=== PATIENT | female | born 1985 | race African-American/Black ===

== ENCOUNTER 2023-06-14 18:11 | Emergency (ER) | payer OTHER, SELFPAY ==
--- NOTE | 2023-06-14 19:20 | PC.NURSE ---
called patient back to triage. she does not want to be seen here. she is going to call 911 so they can take her a different hospital.
== END 2023-06-14 19:20 | disposition left against medical advice (07) ==
DX: Z53.21 Procedure and treatment not carried out due to patient leaving prior to being seen by health care provider (principal)
CPT/HCPCS: 99199

== ENCOUNTER 2023-10-13 13:58 | Emergency (ER) | payer OTHER, SELFPAY ==
[2023-10-13 14:13] VITALS: BP 92/58; PULSE 87; RESP 18; TEMP 37; O2SAT 100
[2023-10-13 14:36] LABS: Basophils Percent Auto 0.4 % (0.2-1.2); Eosinophils Absolute Auto 0.2 K/mm3 (0-0.3); Eosinophils Percent Auto 2.1 % (0-4.4); Hematocrit 41.6 % (37.0-47.0); Hemoglobin 13.2 g/dL (12.0-15.0); Immature Granulocyte Absolute 0.04 K/mm3 (0.00-0.031); Immature Granulocyte Percent A 0.5 % (0-0.5); Lymphocytes Absolute Auto 2.11 K/mm3 (0.9-3.2); Lymphocytes Percent Auto 27.6 % (18.3-44.2); Mean Corpuscular HGB Conc 31.7 g/dl (32-36); Mean Corpuscular Hemoglobin 30.5 pg (26-34); Mean Corpuscular Volume 96.1 fl (80-100); Monocytes Absolute Auto 0.7 K/mm3 (0.1-0.6); Monocytes Percent Auto 9.2 % (2.6-8.5); Neutrophils Absolute Auto 4.6 K/mm3 (1.3-6.7); Neutrophils Percent Auto 60.2 % (45.5-73.1); Platelet Count Result 297 k/mm3 (150-375); Red Blood Count 4.33 M/mm3 (4.2-5.4); Red Cell Distribution Width 13.2 % (11.5-14.5); White Blood Count 7.7 K/mm3 (4.5-10.0)
--- NOTE | 2023-10-13 14:45 | ED.PSYCH ---
HPI - Psych General Chief Complaint: Psychiatric Symptoms <Naun Gabriel APRN - Last Filed: 10/13/23 19:33> Stated Complaint: si- no plan <Naun Gabriel APRN - Last Filed: 10/13/23 19:33> Time Seen by Provider: 10/13/23 14:01 <Naun Gabriel APRN - Last Filed: 10/13/23 19:33> Source: patient <Naun Gabriel APRN - Last Filed: 10/13/23 19:33> Mode of arrival: ambulatory <Naun Gabriel APRN - Last Filed: 10/13/23 19:33> Limitations: no limitations <Naun Gabriel APRN - Last Filed: 10/13/23 19:33> History of Present Illness HPI Narrative: Araceli is a 38-year-old female patient presenting to the ER today for suicidal ideation without a plan. She reports that she has been at [facility] trying to detox from pain medications. She reports that she has had suicidal ideation for the past 2 years. No active plan at this time but has felt worse over the last few days. <Naun Gabriel APRN - Last Filed: 10/13/23 19:33> Related Data Allergies/Adverse Reactions: Allergies Allergy/AdvReac Type Severity Reaction Status Date / Time No Known Allergies Allergy Verified 10/13/23 14:08 <Naun Gabriel APRN - Last Filed: 10/13/23 19:33> Review of Systems Review of Systems: Pertinent positives per HPI. Patient denies any fever, chills, rash, headache, visual changes, dizziness, cough, shortness of breath, chest pain, palpitations, nausea, vomiting, diarrhea, constipation, abdominal pain, or any urinary issues. <Naun Gabriel APRN - Last Filed: 10/13/23 19:33> [facility] Social History Social History: Social History Substance use type: former substance user <Naun Gabriel APRN - Last Filed: 10/13/23 19:33> Comments At the time of my signature, I reviewed and agree with the nursing past medical, surgical, social, and family history. There is no relevant family history pertinent to the patient complaint. <Naun Gabriel APRN - Last Filed: 10/13/23 19:33> Exam Narrative: General: Well-developed, well nourished, in no apparent distress Head: Normocephalic, atraumatic Eyes: Pupils equally round and reactive to light bilaterally, EOM intact, sclera and conjunctive clear, no discharge, lids normal Ears: TMs intact and clear, ear canals clear, no drainage, grossly hearing normal. Nose: Nares patent, no discharge, no inflammation, no sinus tenderness. Mouth: Oral pharynx without lesions or masses, good dentition, MMM. Neck: Supple, trachea midline, no enlargement of anterior or posterior cervical nodes, no thyroid masses or goiter palpable. Cardio: Regular rate and rhythm, s1 and s2 normal, no murmur appreciated. Resp: Clear to auscultation bilaterally, no rhonchi, rales, wheezing or rubs Psych: Alert oriented x4, depressed mood and affect, suicidal ideation without plan <Naun Gabriel APRN - Last Filed: 10/13/23 19:33> Course Course Emergency Course: Portions of this record may have been created with voice recognition software. <Naun Gabriel APRN - Last Filed: 10/13/23 19:33> Portions of this record may have been created with voice recognition software. This patient was handed off to me at time of signout. Bed has been assigned to [place], [place]. Pt is resting comfortably in exam bed, calm and cooperative, not requiring sedation. Handoff to Dr. York at time of shift change pending transfer. <Vera Hills PA-C - Last Filed: 10/14/23 04:07> ROBOTICS ENGINEER/PA Physician Supervision For this patient encounter, I reviewed the ROBOTICS ENGINEER or PA documentation, treatment plan, and medical decision making and I had [id number] time with this patient. I performed all the aspects of the MDM as documented. <Jesse Torres MD - Last Filed: 10/15/23 19:34> Vital Signs Vital signs: Vital Signs Temperature 98.6 F 10/13/23 14:13 Pulse R
[2023-10-13 14:47] LABS: Ethanol < 10 mg/dL (<10)
[2023-10-13 14:52] LABS: Alanine Aminotransferase 14 U/L (6-35); Anion Gap 5 mmol/L (8-16); Aspartate Amino Transferase 22 U/L (14-36); Bilirubin,Total 0.4 mg/dL (0.2-1.3); Blood Urea Nitrogen 18 mg/dL (7-17); Calcium 8.8 mg/dL (8.4-10.2); Carbon Dioxide 33 mmol/L (22-30); Chloride 102 mmol/L (98-107); Estimated CRCL calculation 68 ml/min; Estimated Glomerular Filt Rate > 60; Glucose 73 mg/dL (65-110); Sodium 140 mmol/L (137-145)
[2023-10-13 14:52] LABS: Barbiturate Screen Urine Negative (Negative); Benzodiazepines Screen Urine Negative (Negative)
[2023-10-13 14:53] LABS: Cannabinoid Screen Urine Negative (Negative); Cocaine Screen Urine Positive (Negative); Methadone Screen Urine Negative (Negative); Opiate Screen Urine Negative (Negative); Phencyclidine Screen Urine Negative (Negative)
[2023-10-13 14:53] LABS: Albumin Level 3.8 g/dL (3.5-5.1); Alkaline Phosphatase 51 U/L (38-126)
[2023-10-13 14:55] LABS: Appearance Urine Turbid (Clear); Bacteria Urine 4+ /hpf; Bilirubin Urine 1+ (Negative); Blood Urine Negative (Negative); Calcium Oxalate Crystals Urine Present /hpf; Color Urine Dark Yellow (Yellow); Glucose Urine UA Negative (Negative); Ketones Urine Trace mg/dL (Negative); Leukocyte Esterase Ur Trace LEU/UL (Negative); Nitrate Urine Negative (Negative); Protein Urine Trace mg/dL (Negative); RBC Urine 0-2 /hpf (0-2); Specific Grav Ur 1.035 (1.001-1.035); Squamous Epithelial Cell Urine Many /hpf (Few); pH Urine 5.5 (5.0-9.0)
[2023-10-13 14:58] LABS: Add Urine Microscopic? YES
[2023-10-13 15:23] LABS: Thyroid Stimulating Hormone 0.669 uIU/mL (0.465-4.680)
[2023-10-13 15:24] LABS: SARS-CoV-2 RNA PCR Negative (Negative)
[2023-10-13 15:27] LABS: Acetaminophen < 10 ug/mL (10-30); Salicylate < 1.0 mg/dL (2-20)
--- NOTE | 2023-10-13 15:57 | PC.NURSE ---
Results to Junaid CORN POPPER, Pt medically cleared to contact Crisis.
--- NOTE | 2023-10-13 16:02 | PC.NURSE ---
LVM for Crisis for pt to be evaluated [id number]
[2023-10-13 16:03] LABS: Amphetamine Screen Urine Positive (Negative)
--- NOTE | 2023-10-13 16:37 | PC.NURSE ---
Ordered Regular Precaution diet tray
[2023-10-13 18:20] VITALS: BP 109/75; PULSE 75; RESP 18; TEMP 37.1; O2SAT 100
--- NOTE | 2023-10-13 19:09 | ECG_ITS ---
Measurements Intervals [place] Rate: 96 P: 78 [place]: 154 QRS: 79 QRSD: 90 T: 53 QT: 361 QTc: 458 Interpretive Statements SINUS RHYTHM WITH SINUS ARRHYTHMIA NORMAL ECG NO PREVIOUS ECG AVAILABLE FOR COMPARISON Electronically Signed On 10-14-2023 6:20:10 CUSTOMER MANAGEMENT SPECIALIST by Miguel A Campo D.O.
--- NOTE | 2023-10-13 19:12 | PC.NURSE ---
[facility] called and wanted an EKG faxed over
[2023-10-13 19:21] VITALS: BP 90/55; PULSE 100; RESP 18; TEMP 36.6; O2SAT 98
--- NOTE | 2023-10-14 03:30 | PC.NURSE ---
Pt accepted at [facility] in [place], [place]. [facility] and [facility] declined trip d/t distance. [facility] accepted, soonest available pickup 10/16/23 @ 1200.
--- NOTE | 2023-10-14 07:30 | PC.NURSE ---
Sleeping on stretcher. Sitter at bedside.
--- NOTE | 2023-10-14 08:03 | PC.NURSE ---
standard precautionary tray ordered
[2023-10-14 08:25] VITALS: BP 101/65; PULSE 59; RESP 20; TEMP 36.2; O2SAT 98
--- NOTE | 2023-10-14 08:27 | PC.NURSE ---
@ [phone] [facility] called, declined transfer-not available til 10/15/23
--- NOTE | 2023-10-14 08:44 | PC.NURSE ---
Called [facility] @ 0883-declined
--- NOTE | 2023-10-14 09:53 | PC.NURSE ---
0933 [facility] Declined 0946 [facility] Declined
--- NOTE | 2023-10-14 10:02 | PC.NURSE ---
[facility] Declined at 0958
--- NOTE | 2023-10-14 10:31 | PC.NURSE ---
Pt declined shower.
--- NOTE | 2023-10-14 13:03 | PC.NURSE ---
standard precaution tray ordered
--- NOTE | 2023-10-14 14:34 | PCCCNOTE ---
Spoke with [facility] in [place] area ; they indicated that they are willing to consider transporting pt; they want a pre-auth from [employer] and then the major appliance assembly supervisor will review it. I called [facility] transportation and am on a list for a call back when a customer service representative teacher is available.
--- NOTE | 2023-10-14 17:18 | PC.NURSE ---
standard precaution tray ordered and delivered
--- NOTE | 2023-10-14 21:28 | PC.NURSE ---
Spoke with Iman with Crisis about patient needing to be re evaluated. She stated she would speak with a group care worker about it.
--- NOTE | 2023-10-15 02:46 | PC.NURSE ---
AT 0246 ON 10/15/2023 THE [facility] CALLED AND GAVE A BED ASSIGNMENT FOR THIS PT. [facility] [place] [place], BED #[id number]. REPORT NEEDS TO BE CALLED TO . ACCEPTING PHYSICIAN IS DR. EMERSON WITH Dx OF UNSPECIFIED PSYCOSIS F29 ICD CODE.
[2023-10-15 04:15] VITALS: BP 101/66; PULSE 72; RESP 18; O2SAT 99
--- NOTE | 2023-10-15 07:00 | PC.NURSE ---
Spoke with [facility] and [facility] and informed them that the patient will not be coming to their facilities.
== END 2023-10-15 07:03 ==
PROVIDERS: Nurse Practitioner Family; Emergency Provider Student in an Organized Health Care Education/Training Program
DX: R45.851 Suicidal ideations (principal); Z20.822 Contact with and (suspected) exposure to COVID-19
CPT/HCPCS: 36415; 80053; 80307; 81001; 81025; 84443; 85025; 87086; 87088; 87635; 93005; 99285